=== PATIENT | female | born 1965 | race Caucasian/White ===

== ENCOUNTER 2017-06-26 00:43 | Inpatient (IN) | payer MEDICAID ==
[~2017-06-26] VITALS: Ht 162.6 cm; Wt 113.5 kg
[~2017-06-26 00:43] MED LIST: BECLOMETHASONE 80 MCG; CLON0.5T20 PO; ESOM40CA PO; ESTR1.25 PO; HYDR200T PO; LACT1CAP4 PO; LEVO137T3 PO; LIOT5TAB3 PO; OMEG500C PO; PRAV40TA2 PO; [UNRECOGNIZED DRUG - OTHER]
[2017-06-26] MEDS ORDERED: ALBUTEROL/IPRATROPIUM 2.5MG/0.5MG, 3 ML ONE ×2 (01:23→02:02)
[2017-06-26] MEDS ORDERED: ALBUTEROL/IPRATROPIUM 2.5MG/0.5MG, 3 ML NEB ONE (01:30)
[2017-06-26 02:26] LABS: HEMOGLOBIN 14.1 g/dL (11.7-16.4); WHITE BLOOD COUNT 10.1 x10^3/uL (3.4-10)
[2017-06-26 02:34] LABS: ASPARTATE AMINO TRANSFERASE 14 U/L (15-37); BLOOD UREA NITROGEN 10 mg/dL (7-18)
[2017-06-26] MEDS ORDERED: ONDANSETRON 2MG/ML, 2ML ONE (03:13)
[2017-06-26] MEDS ORDERED: D5%-0.45NACL+KCL 20MEQ 1,000 ML IV SCH (04:20)
[2017-06-26] MEDS ORDERED: ENALAPRILAT 1.25 MG/ML, 2ML IVPush PRN (04:30)
[2017-06-26] MEDS ORDERED: ONDANSETRON ODT 4 MG PO PRN (04:30)
[2017-06-26] MEDS: ALBUTEROL/IPRATROPIUM 2.5MG/0.5MG, 3 ML NPPB SCH ×6 (04:30→22:45)
[2017-06-26] MEDS ORDERED: ONDANSETRON 2MG/ML, 2ML IVPush PRN (04:30)
[2017-06-26] MEDS: ACETAMINOPHEN 325 MG TABLET PO PRN ×2 (06:02→15:53)
[2017-06-26] MEDS: ENOXAPARIN 30 MG/0.3 ML SQ SCH ×2 (06:02→20:50)
[2017-06-26 06:07] VITALS: BP 140/90
[2017-06-26] MEDS ORDERED: DEXTROSE 50%, 50ML SYRINGE IVPush PRN (06:30)
[2017-06-26] MEDS ORDERED: GLUCAGON 1 MG IM PRN (06:30)
[2017-06-26] MEDS ORDERED: DEXTROSE 4 GM TAB.CHEW PO PRN (06:30)
[2017-06-26 07:12] VITALS: BP 128/81
[2017-06-26] MEDS: ESTROGENS CONJUGATED 0.625 MG TABLET PO SCH (08:43)
[2017-06-26] MEDS: SENNA/DOCUSATE TABLET PO SCH (08:43)
[2017-06-26] MEDS: SODIUM CHLORIDE FLUSH 10ML SYR IVF SCH ×2 (08:44→21:00)
[2017-06-26] MEDS: INSULIN ASPART 100 UNITS/ML, PEN SQ-INSULIN SCH ×4 (08:44→20:49)
[2017-06-26] MEDS: OMEPRAZOLE 20 MG CAPSULE.DR PO SCH (08:44)
[2017-06-26] MEDS ORDERED: LEVOTHYROXINE 150 MCG TABLET PO SCH (09:00)
[2017-06-26] MEDS: OXYcodone/APAP 5/325MG TABLET PO PRN ×2 (09:38→19:02)
[2017-06-26] MEDS: SODIUM CHLORIDE 0.9% 1,000 ML IV SCH (09:55)
[2017-06-26 13:17] VITALS: BP 122/74
[2017-06-26 13:54] LABS: RAPID INFLUENZA A Negative (Negative); RAPID INFLUENZA B Negative (Negative)
[2017-06-26 19:00] VITALS: BP 119/71
[2017-06-26] MEDS: PRAVASTATIN 40 MG TABLET PO SCH (20:50)
[2017-06-26 23:55] VITALS: BP 135/80
[2017-06-27] MEDS: ALBUTEROL/IPRATROPIUM 2.5MG/0.5MG, 3 ML NPPB SCH ×6 (00:04→23:40)
[2017-06-27] MEDS: SODIUM CHLORIDE 0.9% 1,000 ML IV SCH (00:40)
[2017-06-27 01:49] VITALS: BP 121/75
[2017-06-27 05:35] LABS: HEMATOCRIT 34.8 % (34.6-47.8); HEMOGLOBIN 11.8 g/dL (11.7-16.4); WHITE BLOOD COUNT 9.2 x10^3/uL (3.4-10)
[2017-06-27 05:53] LABS: BLOOD UREA NITROGEN 8 mg/dL (7-18)
[2017-06-27] MEDS: INSULIN ASPART 100 UNITS/ML, PEN SQ-INSULIN SCH ×4 (07:00→22:00)
[2017-06-27] MEDS: OMEPRAZOLE 20 MG CAPSULE.DR PO SCH (08:46)
[2017-06-27] MEDS: SENNA/DOCUSATE TABLET PO SCH (08:50)
[2017-06-27] MEDS: ACETAMINOPHEN 325 MG TABLET PO PRN ×4 (08:50→23:51)
[2017-06-27] MEDS: ESTROGENS CONJUGATED 0.625 MG TABLET PO SCH (08:50)
[2017-06-27] MEDS: ENOXAPARIN 30 MG/0.3 ML SQ SCH ×2 (08:51→19:32)
[2017-06-27] MEDS: SODIUM CHLORIDE FLUSH 10ML SYR IVF SCH ×2 (08:51→22:00)
[2017-06-27 08:55] VITALS: BP 134/78
[2017-06-27] MEDS: POLYETHYLENE GLYCOL 17 GM PACKET PO PRN ×2 (08:58→22:13)
[2017-06-27] MEDS: LEVOTHYROXINE 175 MCG TABLET PO SCH (09:00)
[2017-06-27] MEDS ORDERED: LEVOTHYROXINE 175 MCG TABLET PO SCH (09:00)
[2017-06-27 15:38] VITALS: BP 126/74
[2017-06-27 18:45] VITALS: BP 127/77
[2017-06-27] MEDS: PRAVASTATIN 40 MG TABLET PO SCH (21:59)
[2017-06-28 01:16] VITALS: BP 130/77
[2017-06-28] MEDS: ALBUTEROL/IPRATROPIUM 2.5MG/0.5MG, 3 ML NPPB SCH ×5 (02:55→22:00)
[2017-06-28] MEDS: OXYcodone/APAP 5/325MG TABLET PO PRN ×2 (03:09→23:08)
[2017-06-28] MEDS: LEVOTHYROXINE 175 MCG TABLET PO SCH (05:24)
[2017-06-28] MEDS: INSULIN ASPART 100 UNITS/ML, PEN SQ-INSULIN SCH ×4 (07:00→19:56)
[2017-06-28] MEDS ORDERED: GUAIFENESIN 200 MG TABLET PO PRN (08:00)
[2017-06-28] MEDS: OMEPRAZOLE 20 MG CAPSULE.DR PO SCH (08:04)
[2017-06-28] MEDS: GUAIFENESIN 200 MG TABLET PO SCH ×4 (08:04→19:55)
[2017-06-28] MEDS: SODIUM CHLORIDE FLUSH 10ML SYR IVF SCH ×2 (08:05→19:56)
[2017-06-28] MEDS: SENNA/DOCUSATE TABLET PO SCH (08:05)
[2017-06-28] MEDS: ENOXAPARIN 30 MG/0.3 ML SQ SCH ×2 (08:06→19:56)
[2017-06-28] MEDS: ESTROGENS CONJUGATED 0.625 MG TABLET PO SCH (08:06)
[2017-06-28 08:23] VITALS: BP 119/77
[2017-06-28] MEDS: ACETAMINOPHEN 325 MG TABLET PO PRN (09:41)
[2017-06-28 15:21] VITALS: BP 115/72
[2017-06-28 18:33] VITALS: BP 112/72
[2017-06-28] MEDS: PRAVASTATIN 40 MG TABLET PO SCH (19:56)
[2017-06-29 00:44] VITALS: BP 118/72
[2017-06-29] MEDS: ALBUTEROL/IPRATROPIUM 2.5MG/0.5MG, 3 ML NPPB SCH ×3 (02:53→11:15)
[2017-06-29 05:30] LABS: HEMATOCRIT 35.1 % (34.6-47.8); HEMOGLOBIN 11.9 g/dL (11.7-16.4); WHITE BLOOD COUNT 9.4 x10^3/uL (3.4-10)
[2017-06-29 05:44] LABS: BLOOD UREA NITROGEN 13 mg/dL (7-18)
[2017-06-29] MEDS: LEVOTHYROXINE 175 MCG TABLET PO SCH (06:32)
[2017-06-29] MEDS: GUAIFENESIN 200 MG TABLET PO SCH ×2 (06:33→12:11)
[2017-06-29] MEDS: INSULIN ASPART 100 UNITS/ML, PEN SQ-INSULIN SCH ×2 (07:00→12:12)
[2017-06-29 07:23] VITALS: BP 118/75
[2017-06-29] MEDS: ESTROGENS CONJUGATED 0.625 MG TABLET PO SCH (08:45)
[2017-06-29] MEDS: ENOXAPARIN 30 MG/0.3 ML SQ SCH (08:45)
[2017-06-29] MEDS: SODIUM CHLORIDE FLUSH 10ML SYR IVF SCH (08:46)
[2017-06-29] MEDS: OMEPRAZOLE 20 MG CAPSULE.DR PO SCH (08:46)
[2017-06-29] MEDS: SENNA/DOCUSATE TABLET PO SCH (08:50)
[2017-06-29] MEDS ORDERED: POTASSIUM CHLORIDE 20 MEQ TAB.ER.PRT PO ONE (09:00)
[2017-06-29] MEDS ORDERED: LEVO137T3 PO (11:35)
[2017-06-29] MEDS ORDERED: GUAI200T3 PO (11:35)
[2017-06-29] MEDS ORDERED: PRED20TA PO (11:35)
[2017-06-29] MEDS ORDERED: ALBUTEROL/IPRATROPIUM 2.5MG/0.5MG, 3 ML NPPB PRN (15:00)
[2017-06-29] MEDS ORDERED: ALBUTEROL/IPRATROPIUM 2.5MG/0.5MG, 3 ML NPPB SCH (15:00)
== END 2017-06-29 14:26 | disposition home health service (06) | DRG 189 ==
LOC: ED 02:22 → EDIP 03:22 → 5SO 04:43 → 4WST 23:42 → DCLOUNGE 06-29 14:10
PROVIDERS: ADMIT Hospitalist; ATTEND Hospitalist
DX: J96.01 Acute respiratory failure with hypoxia (principal); J84.9 Interstitial pulmonary disease, unspecified; J45.52 Severe persistent asthma with status asthmaticus; J45.901 Unspecified asthma with (acute) exacerbation; Z68.41 Body mass index [BMI] 40.0-44.9, adult; Z99.81 Dependence on supplemental oxygen; E11.9 Type 2 diabetes mellitus without complications; K21.9 Gastro-esophageal reflux disease without esophagitis; J20.9 Acute bronchitis, unspecified; E87.6 Hypokalemia; E89.0 Postprocedural hypothyroidism; F41.8 Other specified anxiety disorders; M06.9 Rheumatoid arthritis, unspecified; E66.9 Obesity, unspecified; F32.9 Major depressive disorder, single episode, unspecified; E78.5 Hyperlipidemia, unspecified
CPT/HCPCS: 36415; 71020; 80048; 80053; 82962; 83036; 83880; 84443; 85025; 87070; 87205; 87400; 93005; 94640; 99291; J1650; J1815; J7620; J3480; J7030; J7512

== ENCOUNTER 2021-05-05 16:33 | Emergency (ER) | payer MEDICAID ==
[~2021-05-05 16:33] MED LIST changes: +GUAI200T37 PO; -HYDR200T PO; +HYDR200T72 PO; +LIOT5TAB11 PO; -LIOT5TAB3 PO; +PRED20TA PO
--- NOTE | 2021-05-05 17:15 | NUR ---
store director: Pt ambulatory to room from lobby at this time.
[2021-05-05] MEDS ORDERED: CASIRIVIMAB 600 MG, IMDEVIMAB (REGN10987) 600 MG in SODIUM CHLORIDE 0.9% 250 ML IVPB ONE (18:00)
[2021-05-05] MEDS ORDERED: FILTER 0.22 MICRON IV ONE (18:00)
[2021-05-05] MEDS ORDERED: ACETAMINOPHEN 500 MG TABLET ONE (18:09)
[2021-05-05 18:22] LABS: BASOPHILS % (AUTO) 1 % (0-1); EOSINOPHILS % (AUTO) 0 % (1-7); LYMPHOCYTES % (AUTO) 26 % (22-44); MEAN CORPUSCULAR HEMOGLOBIN 29.2 pg (27.0-34.8); MEAN CORPUSCULAR HGB CONC 33.7 g/dL (32.4-35.8); MEAN PLATELET VOLUME 9.4 fL (7.4-10.4); MONOCYTES % (AUTO) 8 % (2-9); NEUTROPHILS % (AUTO) 66 % (42-75); PLATELET COUNT 190 x10^3/uL (130-400); RED BLOOD COUNT 4.82 x10^6/uL (3.82-5.3); RED CELL DISTRIBUTION WIDTH 14.1 % (9.6-15.2)
[2021-05-05 18:30] LABS: ALBUMIN 3.4 g/dL (3.4-5.0); ANION GAP 8 mmol/L (5-15); CALCIUM 8.9 mg/dL (8.5-10.1); CHLORIDE 104 mmol/L (98-107); CREATININE 0.73 mg/dL (0.55-1.02)
[2021-05-05] MEDS ORDERED: ACETAMINOPHEN 500 MG TABLET PO ONE (18:30)
[2021-05-05 20:25] VITALS: BP 170/90
== END 2021-05-05 21:28 | disposition home or self-care (01) ==
LOC: ED 21:13
DX: U07.1 COVID-19 (principal); J06.9 Acute upper respiratory infection, unspecified
CPT/HCPCS: 36415; 71045; 80048; 82040; 85025; 99285; M0243; 96365